=== PATIENT | male | born 1965 | race Caucasian/White ===

== ENCOUNTER 2017-03-18 03:25 | Emergency (ER) | payer SELFPAY ==
[2017-03-18] MEDS ORDERED: Gentamicin Ophth Ointment 0.3% 3.5 gm Tube ONE ×2 (03:45→04:00)
[2017-03-18] MEDS ORDERED: Ibuprofen 800 MG TAB ONE (04:00)
[2017-03-18] MEDS ORDERED: Cephalexin 500 MG CAP ONE (04:00)
[2017-03-18] MEDS ORDERED: HYDROcodone/Acetaminophen 5/325 mg Tablet ONE (04:00)
== END 2017-03-18 04:10 | disposition home or self-care (01) ==
LOC: MADERS 03:25
DX: H00.036 Abscess of eyelid left eye, unspecified eyelid (principal); F17.210 Nicotine dependence, cigarettes, uncomplicated
CPT/HCPCS: 99283